=== PATIENT | male | born 1995 | race Caucasian/White ===

== ENCOUNTER 2021-09-26 16:06 | Emergency (ER) | payer BC, SELFPAY ==
[2021-09-26 16:07] VITALS: BP 179/108; PULSE 93; RESP 16; TEMP 36.5; O2SAT 100
[2021-09-26 16:36] LABS: Basophils Absolute Auto 0.1 K/mm3 (0.0-0.1); Basophils Percent Auto 0.7 % (0.2-1.2); Eosinophils Absolute Auto 0.1 K/mm3 (0-0.3); Eosinophils Percent Auto 0.7 % (0-4.4); Hematocrit 46.4 % (42.0-52.0); Hemoglobin 16.1 g/dL (14.0-18.0); Immature Granulocyte Absolute 0.04 K/mm3 (0.00-0.031); Immature Granulocyte Percent A 0.4 % (0-0.5); Lymphocytes Absolute Auto 2.27 K/mm3 (0.9-3.2); Lymphocytes Percent Auto 21.5 % (18.3-44.2); Mean Corpuscular HGB Conc 34.7 g/dl (32-36); Mean Corpuscular Hemoglobin 29.8 pg (26-34); Mean Corpuscular Volume 85.9 fl (80-100); Mean Platelet Volume 9.9 fl (7.4-10.4); Monocytes Absolute Auto 0.6 K/mm3 (0.1-0.6); Monocytes Percent Auto 5.9 % (2.6-8.5); Neutrophils Absolute Auto 7.5 K/mm3 (1.3-6.7); Neutrophils Percent Auto 70.8 % (45.5-73.1); Platelet Count Result 294 k/mm3 (150-375); Red Cell Distribution Width 12.5 % (11.5-14.5); White Blood Count 10.6 K/mm3 (4.5-10.0)
--- NOTE | 2021-09-26 16:47 | ED.ABDPAIN ---
HPI - Abdominal Pain General Chief Complaint: Abdominal Pain Stated Complaint: ABD Pain x3 Days Time Seen by Provider: 09/26/21 16:14 Source: patient Mode of arrival: ambulatory Limitations: no limitations History of Present Illness HPI narrative: 26-year-old male presents today with complaints of epigastric pain and nausea vomiting x3 days. Patient denies fever, cough, runny nose, body aches, diarrhea. Patient does endorse chills. Patient denies being around any sick contacts. Patient does endorse daily marijuana usage. Patient denies any symptoms like this before. Patient denies any abdominal surgeries. Related Data Allergies Allergy/AdvReac Type Severity Reaction Status Date / Time No Known Allergies Allergy Mild Verified 06/06/10 00:01 Review of Systems Review of Systems: CONSTITUTIONAL: Denies fever, chills, or sweats. EYES: Denies visual changes, redness, or discharge. ENT: Denies rhinorrhea, congestion, sore throat, or otalgia. CARDIOVASCULAR: Denies chest pain, palpitations, or edema. RESPIRATORY: Denies cough or dyspnea. GASTROINTESTINAL: Epigastric pain with nausea and vomiting x3 days. Denies diarrhea. GENITOURINARY: Denies dysuria or hematuria. SKIN: Denies rash or itching. MUSCULOSKELETAL: Denies back pain, joint pain, or myalgia. NEUROLOGIC: Denies headache, numbness, dizziness, or weakness. PSYCHIATRIC: Denies anxiety or depression. [facility] Social History Social History (Updated 09/26/21 @ 16:52 by Selena Ochoa, [id number]) Substance use: current Substance use type: marijuana Last use: Daily Exam Narrative: GENERAL: Well-appearing, well-nourished, and in no acute distress. HEAD: Normocephalic, atraumatic. EYES: PERRLA and EOMI. NECK: Supple. No adenopathy or masses. No carotid bruits or JVD CHEST: Clear to auscultation. No respiratory distress. No wheezes rales or rhonchi HEART: Regular rate and rhythm. No murmur heard. Normal peripheral pulses. ABDOMEN: Soft, nontender, nondistended, normal active bowel sounds. EXTREMITIES: Normal range of motion. No edema. SKIN: Warm, dry, no rash. NEURO: No focal deficits. Alert and oriented x3. PSYCH: Normal mood and affect. Course Course Emergency Course: Patient was improvement of nausea after IV fluids, IV Reglan, and IV Benadryl. Patient then endorsed a headache with slight nausea. Patient without nausea after second dose of Reglan and minimal headache. Labs discussed with patient. Discussed possibilities of gastroenteritis, viral syndrome, or cannabis hyperemesis syndrome. Patient to push fluids at home and follow-up with primary in 3 days. Vital Signs Vital signs: Vital Signs Temperature 36.5 C 09/26/21 16:07 Pulse Rate 93 09/26/21 16:07 Respiratory Rate 16 09/26/21 16:07 Blood Pressure 179/108 H 09/26/21 16:07 Pulse Oximetry 100 09/26/21 16:07 Oxygen Delivery Room Air 09/26/21 16:07 Temperature 36.5 C 09/26/21 16:07 Pulse Rate 54 L 09/26/21 18:37 Respiratory Rate 16 09/26/21 18:37 Blood Pressure 156/98 H 09/26/21 18:37 Pulse Oximetry 97 09/26/21 18:37 Oxygen Delivery Room Air 09/26/21 16:07 MDM - Abdominal Pain MDM Narrative Medical decision making narrative: 26-year-old male HPI as noted. Suspect cannabinoid hyperemesis syndrome due to marijuana usage but could be viral, gastroenteritis. White count 10.6, bilirubin 1.8, AST 81, ALT 51, alk phos 85. Imaging not indicated at this time. Patient with noted improvement after IV medications. Patient to be discharged home. Differential Diagnosis Differential diagnosis: Likely gastroenteritis and other (Nausea vomiting, viral syndrome, cannabinoid hyperemesis syndrome) Medical Records Attestation: I reviewed the patient's medical records. Lab Data Attestation: I reviewed the patient's lab results. Result diagrams: 09/26/21 16:25 09/26/21 16:25 Labs: Lab Results 09/26/21 09/26/21 09/26/21 Range/Units 16:25 1
[2021-09-26 16:49] LABS: Alanine Aminotransferase 51 U/L (6-50); Albumin Level 5.4 g/dL (3.5-5.1); Alkaline Phosphatase 85 U/L (38-126); Anion Gap 8 mmol/L (8-16); Aspartate Amino Transferase 81 U/L (17-59); Bilirubin,Total 0.8 mg/dL (0.2-1.3); Blood Urea Nitrogen 12 mg/dL (9-20); Calcium 9.6 mg/dL (8.4-10.2); Carbon Dioxide 27 mmol/L (22-30); Chloride 106 mmol/L (98-107); Estimated CRCL calculation 129 ml/min; Estimated Glomerular Filt Rate > 60; Glucose 107 mg/dL (65-110); Lipase 175 U/L (23-300); Potassium 4.1 mmol/L (3.4-5.0); Sodium 141 mmol/L (137-145)
[2021-09-26] MEDS: diphenhydrAMINE HCl INJ 50 MG/ML VIAL 25 MG IV PUSH (17:05)
[2021-09-26] MEDS: SODIUM CHLORIDE 0.9% IV 1,000 ML 999 ML IV CONT (17:05)
[2021-09-26] MEDS: PANTOPRAZOLE SODIUM IV 40 MG VIAL IV PUSH (17:05)
[2021-09-26] MEDS: METOCLOPRAMIDE HCL INJ 10 MG/2 ML VIAL IV PUSH ×2 (17:05→18:00)
--- NOTE | 2021-09-26 17:38 | PC.NURSE ---
Pt encouraged to give urine specimen.
[2021-09-26 17:52] LABS: Appearance Urine Clear (Clear); Bilirubin Urine Negative (Negative); Color Urine Yellow (Yellow); Glucose Urine UA Negative (Negative); Ketones Urine Negative (Negative); Leukocyte Esterase Ur Negative LEU/UL (Negative); Nitrate Urine Negative (Negative); Protein Urine Negative (Negative); Urobilinogen Urine 0.2 mg/dL (<2.0)
[2021-09-26 17:54] LABS: Add Urine Microscopic? YES; Blood Urine Trace-Intact (Negative)
[2021-09-26 17:56] LABS: Mucus Urine Rare /lpf; RBC Urine 0-2 /hpf (0-2); WBC Urine 0-3 /hpf
[2021-09-26] MEDS: KETOROLAC 30 MG/ML VIAL (*BKC) IV PUSH (18:00)
[2021-09-26 18:37] VITALS: BP 156/98; PULSE 54; RESP 16; O2SAT 97
== END 2021-09-26 18:38 | disposition home or self-care (01) ==
PROVIDERS: Emergency Medicine; Emergency Provider Nurse Practitioner Family; PCP Family Medicine Sports Medicine
DX: R11.2 Nausea with vomiting, unspecified (principal)
CPT/HCPCS: 36415; 80053; 81001; 83690; 85025; 96361; 96374; 96375; 96376; 99284; C9113; J1200; J1885; J2765; J7030